=== PATIENT | male | born 1970 | race Caucasian/White ===

== ENCOUNTER 2020-09-04 20:19 | Inpatient (IN) | payer OTHER, SELFPAY ==
[2020-09-04 20:20] VITALS: BP 108/81; PULSE 121; RESP 14; TEMP 37.9; O2SAT 97; BMI 25.8
--- NOTE | 2020-09-04 20:46 | RAD_ITS ---
STUDY: X-RAY CHEST REASON FOR EXAM: Male, 50 years old. Sepsis. Shortness of breath. TECHNIQUE: Single AP portable view of the chest. COMPARISON: None. FINDINGS: The lungs are clear and expanded. There is no demonstrated pleural abnormality. Normal size heart. Normal mediastinum and gabby. Normal visualized pulmonary arteries. Normal visualized aortic arch and descending thoracic aorta. Normal visualized thoracic spine. Normal visualized ribs, clavicles, and shoulders. There is no demonstrated abnormality of the visualized soft tissue structures of the upper abdomen. RAD/Chest 1 View (Portable) IMPRESSION: No acute cardiopulmonary disease. Electronically Signed: Linwood Riddle DO at 21:07 EDT Tel [phone], Service support ,
[2020-09-04] MEDS: 0.9% Normal Saline 1,000 ML 999 ML IV ×2 (20:57→22:10)
[2020-09-04] MEDS: Acetaminophen 325 MG Tablet 650 MG PO (20:57)
--- NOTE | 2020-09-04 20:58 | EX.ED.DYSGE1 ---
HPI History of Present Illness Chief Complaint: Fever Informant: patient Narrative Narrative: Patient is a 50-year-old male who presents to the emergency department for fatigue and fever. His initial symptoms started this past Wednesday. He also developed a diffuse body rash starting on Wednesday. He has been taking some ibuprofen for his symptoms. His temperature at most has been up to 101. No known sick contacts. Patient does not believe he is received any vaccinations in childhood. Is not been vaccinated for Covid. He has had a intermittent headache and neck stiffness. He denies any chest pain but does get short of breath easily. No significant cough. No abdominal pain. No change in bowel movements. No urinary symptoms. He does work out in the [place]. He has had ticks attached to him before in the past. He does not recall any recent ones. Patient does smoke. PFSH PFSH Allergy/AdvReac Type Severity Reaction Status Date / Time No Known Allergies Allergy Verified 09/04/20 20:19 Social History Smoking Status: Current every day smoker tobacco type: cigarettes ROS ROS ED Constitutional Constitutional ED: Reports chills and fever(s) Eyes Eyes: Denies change in vision ENT ENT ED: Denies epistaxis or rhinorrhea Cardiovascular Cardiovascular: Denies chest pain or palpitations Respiratory/Chest Respiratory/Chest: Denies cough or dyspnea Gastrointestinal Gastrointestinal: Reports nausea; Denies abdominal pain, diarrhea or vomiting Genitourinary Genitourinary ED: Denies dysuria, hematuria or urinary frequency Musculoskeletal Musculoskeletal: Reports neck pain; Denies back pain Integumentary Reports rash Neurologic Neurologic: Reports headache(s); Denies dizziness or weakness EXAM Physical Exam Const Vital Signs: 09/04/20 20:20 09/04/20 20:53 09/04/20 21:23 Temperature 100.2 F H 100.2 F H Temperature Source Temporal Oral Pulse Rate 121 H 108 H Respiratory Rate 14 17 Respiratory Effort Short of Breath Respiratory Pattern Normal Blood Pressure 108/81 H 125/89 H Blood Pressure Mean 90 101 Pulse Ox 97 92 Oxygen Delivery Method Room Air Room Air Room Air 09/04/20 22:00 09/04/20 22:24 09/04/20 22:56 Temperature 98.2 F Temperature Source Oral Pulse Rate 100 87 85 Respiratory Rate 20 H 18 19 H Respiratory Effort Respiratory Pattern Blood Pressure 79/57 L 103/71 107/69 Blood Pressure Mean 64 81 81 Pulse Ox 92 92 94 Oxygen Delivery Method Room Air Room Air 09/04/20 23:29 Temperature 98.6 F Temperature Source Oral Pulse Rate 88 Respiratory Rate 18 Respiratory Effort Respiratory Pattern Blood Pressure 110/69 Blood Pressure Mean 82 Pulse Ox 91 Oxygen Delivery Method Room Air Positive well nourished and well developed General Appearance ED: well developed HEENT Reports normocephalic and head/scalp atraumatic Eyes PERRL and EOMs intact bilaterally Neck Neck Narrative: Patient does have some mild stiffness when flexing his neck and extending it. No pain with flexion of legs. His neck otherwise is supple. Chest Wall inspection of chest normal Resp normal respiratory effort and clear to auscultation bilaterally Auscultation: Negative for rales, rhonchi or wheezes Cardio regular rhythm and no murmurs Rate: tachycardic GI normal to inspection, nondistended, normoactive bowel sounds and non-tender Palpation: soft; Negative for guarding or rebound tenderness present Extremity normal to inspection General Extremety ED: Negative for edema or tenderness General Extremity: Negative for edema Neuro oriented x3, CN's II-XII intact bilaterally and no sensory deficits noted Sensorium / Orientation: alert Motor Exam: strength 5/5 throughout Psych mental status grossly normal Skin Skin Narrative: Diffuse body rash with large circles of erythema. That is blanchable. This extends over his entire body. Does look like the hands and soles of the feet are spared. No mucous membrane involvement. No petechiae present. No skin sloughing. MDM MDM MDM Narrative Medical decision making narrative: Patient presents to the emergency department for fever and fatigue. Upon arrival to the emergency department he does have a low-grade fever as well as tachycardia. He started IV fluids given a dose of Tylenol. With a history of a previous tick bite, working in the welch in a disseminated rash. I do have concern for Lyme disease. He does have some neck stiffness and intermittent headaches so I do have concern for meningitis as well. A CT scan will be obtained to evaluate for evidence of elevated intracranial pressure. Will perform lumbar puncture. Patient will be started on doxycycline and Rocephin. Blood cultures obtained as well as basic lab work. Procedure note: Written consent obtained. Risks and benefits expressed to the patient. The area was prepped and cleaned with iodine solution. The area was anesthetized with 3 cc of 1% lidocaine without epinephrine. Using spinal needle for tubes of 1 cc of clear spinal fluid was expressed. This did take 2 attempts. Patient tolerated procedure well but did have some diaphoresis and mild vagal. Patient recovered quickly from this. Patient lying flat for 1 hour post procedure. No headache post procedure. Back dressed with Band-Aid. Throughout course of ED stay patient is feeling better. Heart rate returned to normal. Temperature returning to normal. His lab did not reveal significant acute abnormality. He does not have a high white blood cell count. He has a normal lactic acid. Urine does not show any signs of infection. Chest x-ray does not reveal any acute cardiopulmonary abnormality. I did discuss the case with the on-call infectious disease doctor. He did not have any other recommendations to add at this time. Given the fact patient did come in with SIRS criteria will bring him into the hospital for observation. Lyme titer currently pending. His CSF had mild elevation of protein, normal glucose and no reportable white blood cells. This was all discussed with the patient he understands and is agreeable this plan. Lab Data Labs: Laboratory Results - last 24 hr 09/04/20 09/04/20 09/04/20 20:45 20:45 20:45 WBC 7.1 RBC 5.23 Hgb 16.1 Hct 46.9 MCV 89.7 MCH 30.8 MCHC 34.3 RDW Std Deviation 41.2 RDW Coeff of Jatin 12.4 Plt Count 104 L MPV 11.0 Immature Gran % (Auto) 0.400 Neut % (Auto) 75.5 H Lymph % (Auto) 13.6 L [place] % (Auto) 7.1 Eos % (Auto) 3.0 Baso % (Auto) 0.4 Absolute Neuts (auto) 5.3 Absolute Lymphs (auto) 0.96 Nucleated RBC % 0 Sodium 134 L Potassium 4.0 Chloride 101 Carbon Dioxide 24.0 Anion Gap 9 BUN 16 Creatinine 1.06 Estim Creat Clear Calc 80.66 Est GFR (MDRD) Af Amer 95 Est GFR (MDRD) Non-Af 79 BUN/Creatinine Ratio 15.1 Glucose 122 H Lactic Acid 1.0 Calcium 8.4 L Total Bilirubin 0.70 AST 25 ALT 44 Alkaline Phosphatase 74 Total Protein 7.4 Albumin 3.1 L Globulin 4.3 H Albumin/Globulin Ratio 0.7 L Urine Color Urine Clarity Urine pH Ur Specific [place] Urine Protein Urine Glucose (UA) Urine Ketones Urine Occult Blood Urine Nitrite Urine Bilirubin Urine Urobilinogen Ur Leukocyte Esterase Urine RBC Urine WBC Ur Squamous Epith Cells Urine Bacteria Urine Mucus Fld Polynuclear WBCs # Fld Polynuclear WBCs % Fluid Mononuclear WBCs Fld Mononuclear WBCs % CSF WBC CSF Cell Count Tube # CSF Total Cell Counted CSF Glucose CSF Total Protein 09/04/20 09/04/20 09/04/20 21:15 22:05 22:05 WBC RBC Hgb Hct MCV MCH MCHC RDW Std Deviation RDW Coeff of [place] Plt Count MPV Immature Gran % (Auto) Neut % (Auto) Lymph % (Auto) [place] % (Auto) Eos % (Auto) Baso % (Auto) Absolute Neuts (auto) Absolute Lymphs (auto) Nucleated RBC % Sodium Potassium Chloride Carbon Dioxide Anion Gap BUN Creatinine Estim Creat Clear Calc Est GFR (MDRD) Af Amer Est GFR (MDRD) Non-Af BUN/Creatinine Ratio Glucose Lactic Acid Calcium Total Bilirubin AST ALT Alkaline Phosphatase Total Protein Albumin Globulin Albumin/Globulin Ratio Urine Color Yellow Urine Clarity Clear Urine pH 6.0 Ur Specific [place] 1.010 Urine Protein 30 H Urine Glucose (UA) Normal Urine Ketones Negative Urine Occult Blood 10 H Urine Nitrite Negative Urine Bilirubin Negative Urine Urobilinogen Normal Ur Leukocyte Esterase Negative Urine RBC 0 SEEN Urine WBC 0 SEEN Ur Squamous Epith Cells 0 SEEN Urine Bacteria 1+ Urine Mucus 0 SEEN Fld Polynuclear WBCs # 0.000 Fld Polynuclear WBCs % 0.0 Fluid Mononuclear WBCs 0.001 Fld Mononuclear WBCs % 100.0 CSF WBC Not Reportable CSF Cell Count Tube # Not Reportable CSF Total Cell Counted Not Reportable CSF Glucose 66 CSF Total Protein 55.0 H Radiography Diagnostic Testing: Radiology Impression Chest X-Ray 09/04/20 20:46 IMPRESSION: No acute cardiopulmonary disease. Electronically Signed: Linwood Riddle DO at 21:07 EDT Tel [phone], Service support , Brain CT 09/04/20 21:00 IMPRESSION: Normal unenhanced CT scan of the brain. Electronically Signed: Linwood Riddle DO at 21:12 EDT Tel [phone], Service support , EKG Initial EKG: Attestation: I personally reviewed and interpreted this EKG as follows: (Rate of 109 bpm in sinus tachycardia. Normal intervals. Normal axis. No significant ST elevations or depressions. No T wave abnormalities.) Discharge Plan Dx/Rx/DC Orders Clinical Impression: SIRS (systemic inflammatory response syndrome), Disseminated Lyme disease Disposition Disposition: Acute Care Hospital [facility] Discharge Date/Time: 09/05/20 00:31
[2020-09-04] MEDS: Doxycycline 100 MG CAPSULE 200 MG PO (20:59)
[2020-09-04 21:00] LABS: Lyme Ab Screen Interpretation REF LAB; Lyme Scn Total Ab w/Rflx REF LAB
--- NOTE | 2020-09-04 21:00 | CT_ITS ---
STUDY: CT BRAIN WITHOUT CONTRAST REASON FOR EXAM: Male, 50 years old. Evaluate for elevated intracranial pressure prior to lumbar puncture. RADIATION DOSAGE (If Supplied By Facility): CTDIvol = ( 44.99 ) mGy, DLP = ( 846.73 ) mGycm TECHNIQUE: Transaxial CT imaging of the brain was performed without administration of intravenous contrast material. Individualized dose optimization techniques were used for this CT. COMPARISON: No relevant priors. FINDINGS: Normal soft tissue structures. Normal calvarium. Normal size ventricles and extra-axial spaces for the patient''s age. Normal white matter tracts of the cerebral hemispheres. Normal basal ganglia and thalami. Normal brainstem. Normal cerebellum. There is no intracranial hemorrhage. There are no findings of an acute ischemic infarction. Normal visualized paranasal sinuses. CT/Brain/Head without Contrast IMPRESSION: Normal unenhanced CT scan of the brain. Electronically Signed: Linwood Riddle DO at 21:12 EDT Tel [phone], Service support ,
[2020-09-04 21:04] LABS: Absolute Lymphocyte Count 0.96 X10^3/uL (0.83-4.51); Absolute Neutrophil Count 5.3 X10^3/uL (2.0-7.7); Basophil# 0.03 X10^3/uL; Basophil% 0.4 % (0-1); Eosinophil# 0.21 X10^3/uL; Hematocrit 46.9 % (40-54); Hemoglobin 16.1 g/dL (13.0-16.5); Lymphocyte # 0.96 X10^3/ul (0.83-4.51); Lymphocyte % 13.6 % (19-41); Mean Corp Hgb Conc 34.3 g/dL (32-36); Mean Corpuscular Hgb 30.8 pg (27.0-32.0); Mean Corpuscular Volume 89.7 fL (80-94); Monocyte% 7.1 % (0-10); NRBC Flagged by Analyzer 0 % (0-5); Neutrophil # 5.32 X10^3/uL (2.7-7.7); Neutrophil % 75.5 % (47-70); POSITIVE COUNT YES; Platelet Count 104 K/mm3 (150-450); RBC Distribution Width CV 12.4 % (11.6-14.6); RBC Distribution Width SD 41.2 fl (35.1-43.9); Red Blood Count 5.23 M/mm3 (4.6-6.2); White Blood Count 7.1 K/mm3 (4.4-11.0)
[2020-09-04 21:06] LABS: Differential Indicated SCAN CRITERIA MET
--- NOTE | 2020-09-04 21:09 | EKG12_ITS ---
Test Reason : DYSRHYTHMIA Blood Pressure : / mmHG Vent. Rate : 109 BPM Atrial Rate : 109 BPM P-R Int : 134 ms QRS Dur : 088 ms QT Int : 332 ms P-R-T Axes : 058 -26 060 degrees QTc Int : 447 ms Sinus tachycardia Low voltage QRS Borderline ECG Confirmed by WILLEM CORDOVA, RACHAEL ([id number]), society editor CAPRI MOROCHO ([id number]) on 09/06/2020 9:26:05 AM Referred By: THAO Confirmed By:JOSÉ MIGUEL BANGURA MD
[2020-09-04] MEDS: Lidocaine/Prilocaine HCl 5 GM Tube TOPICAL (21:10)
[2020-09-04 21:23] VITALS: BP 125/89; PULSE 108; RESP 17; TEMP 37.9; O2SAT 92
[2020-09-04 21:24] LABS: Mucous, Urine 0 SEEN /hpf (<or=2+); Red Blood Cells-Urine 0 SEEN /hpf (0-5); Squamous Epithelial Cells - UA 0 SEEN /hpf (0-5); White Blood Cells 0 SEEN /hpf (0-5)
[2020-09-04 21:25] LABS: Color, Urine Yellow (Yellow); Glucose, Dipstick Normal (Normal); Ketone-Dipstick Negative (Negative); Leukocyte Esterase-Dipstick Negative /ul (Negative); Nitrite-Dipstick Negative (Negative); Occult Blood-Urine 10 /ul (Negative); Protein-Dipstick 30 mg/dl (Negative); Urine Bilirubin Dipstick Negative (Negative); Urine Clarity Clear (Clear); Urine Urobilinogen Normal (Normal)
[2020-09-04 21:25] LABS: ALB/GLOB Ratio 0.7 RATIO (0.9-2.4); AST(SGOT) 25 U/L (15-37); Alanine Aminotransfer ALT/SGPT 44 U/L (16-61); Albumin, Serum 3.1 g/dL (3.2-5.0); Alkaline Phosphatase 74 U/L (45-117); Anion Gap 9 (5-15); BUN 16 mg/dL (7-18); BUN/Creat Ratio 15.1 RATIO (10-20); Calcium,Total 8.4 mg/dL (8.5-10.1); Chloride 101 mmol/L (98-107); Creatinine, Serum 1.06 mg/dL (0.70-1.30); EST Glomerular Filtration Rate 79 mL/min (>60); Est Glom Filt Rate - Afr Amer 95 mL/min (>60); Estimated Creatinine Clearance 80.66 ml/min; Globulin 4.3 g/dL (2.2-4.2); Glucose 122 mg/dL (74-106); Protein, Total 7.4 g/dL (6.4-8.2); Sodium Level 134 mmol/L (136-145)
[2020-09-04 21:31] LABS: Bacteria 1+ /hpf (None Seen)
[2020-09-04 22:00] VITALS: BP 79/57; PULSE 100; RESP 20; O2SAT 92
[2020-09-04 22:24] VITALS: BP 103/71; PULSE 87; RESP 18; TEMP 36.8; O2SAT 92
[2020-09-04 22:24] LABS: Glucose Spinal Fluid 66 mg/dL (40-75)
--- NOTE | 2020-09-04 22:28 | ED.RN ---
pt become diaphoretic while doing LP. 2200- BP 79/57 P-100 spO2- 92 R-22. [address] Dr. Garza, give 1000ml bolus IV. After laying patient down when procedure was finished, pt started feeling better. no sweating noted. VSS. lying flat at this time. no complaints.
[2020-09-04 22:55] LABS: Body Fluid Mononuclear WBC # 0.001 10^3/uL
[2020-09-04 22:56] VITALS: BP 107/69; PULSE 85; RESP 19; O2SAT 94
[2020-09-04 23:29] VITALS: BP 110/69; PULSE 88; RESP 18; TEMP 37; O2SAT 91
[2020-09-05] VITALS (12 sets, daily range): BP systolic 101–126; BP diastolic 66–85; PULSE 77–107; RESP 14–19; TEMP 36.4–38.8; O2SAT 91–96; BMI 24.9
[2020-09-05 00:05] LABS: Auto B Fluid Analyzer BKGD Ct COUNTS W/IN LIMITS (W/IN LIMITS)
--- NOTE | 2020-09-05 00:07 | PCM.HP.STD ---
HPI - General General Date of Admission: 09/05/20 HPI Narrative TAI ZAMUDIO, is a 50 M with no significant PMH who was admitted via the ED on 09/05/2020 with a complaint of fever, chills and a rash which had been going on for a few days. He denied any cough, urinary symptoms also respiratory symptoms, any abdominal pain or any diarrhea vomiting. Patient did admit to a rash. He states he goes out into the [place] often, and has been bitten by ticks before but cannot say if it has happened recently. Review of systems otherwise negative. Initially on admission, he was febrile with temperature 100.2 and was also tachycardic with heart rate of 108 but the symptoms subsequently resolved after he was hydrated with IV fluids and at time of review, vitals were temperature of 98.6, pulse rate of 88 and blood pressure of 110/69 with respiratory rate of 18 and he was saturating at 91% on room air. CBC showed WBC of 7.1 and hemoglobin of 16.1 as well as platelets of 104. Chemistry showed sodium of 134 but was otherwise unremarkable. Patient was complaining of neck stiffness at time of admission as well so lumbar puncture was done and CSF analysis showed elevated protein of 55 but was otherwise pending. Chest x-ray showed no acute cardiopulmonary process and CT of the brain was also negative for any acute intracranial pathology. Patient was noted to have an extensive rash which is similar to disseminated Lyme so he was started on IV ceftriaxone and doxycycline in the ED. He has been admitted to be managed for SIRS criteria which is thought to be possibly due to disseminated Lyme disease. PFSH Allergy/AdvReac Type Severity Reaction Status Date / Time No Known Allergies Allergy Verified 09/04/20 20:19 Social History Smoking Status: Current every day smoker tobacco type: cigarettes ROS Constitutional Constitutional: Reports chills, fatigue, fever(s) and malaise; Denies anorexia, night sweats or weakness ENT HEENT: Denies dysphagia, headache(s), nasal congestion or sore throat Cardiovascular Cardiovascular: Denies chest pain, dyspnea on exertion, edema, lightheadedness, orthopnea, palpitations, paroxysmal nocturnal dyspnea or rapid heart rate Respiratory/Chest Respiratory/Chest: Denies cough, dyspnea, productive cough, shortness of breath at rest or shortness of breath with exertion Gastrointestinal Gastrointestinal: Denies abdominal pain, constipation or diarrhea Genitourinary Genitourinary: Denies burning urination, dysuria or urinary frequency Musculoskeletal Musculoskeletal: Denies arthralgias, joint pain or joint swelling Neurologic Neurologic: Denies confusion, dizziness or focal weakness Psychiatric Psychiatric: Denies anxiety Endocrine Endocrinology: Denies change in body appearance Hematologic/Lymphatic Hematologic/Lymphatic: Denies anemia Allergic/Immunologic Allergic/Immunologic: Denies asthma Vital Signs Vital Signs Vital Signs: 09/04/20 20:20 09/04/20 20:53 09/04/20 21:23 Temperature 100.2 F H 100.2 F H Temperature Source Temporal Oral Pulse Rate 121 H 108 H Respiratory Rate 14 17 Respiratory Effort Short of Breath Respiratory Pattern Normal Blood Pressure 108/81 H 125/89 H Blood Pressure Mean 90 101 Pulse Ox 97 92 Oxygen Delivery Method Room Air Room Air Room Air 09/04/20 22:00 09/04/20 22:24 09/04/20 22:56 Temperature 98.2 F Temperature Source Oral Pulse Rate 100 87 85 Respiratory Rate 20 H 18 19 H Respiratory Effort Respiratory Pattern Blood Pressure 79/57 L 103/71 107/69 Blood Pressure Mean 64 81 81 Pulse Ox 92 92 94 Oxygen Delivery Method Room Air Room Air 09/04/20 23:29 Temperature 98.6 F Temperature Source Oral Pulse Rate 88 Respiratory Rate 18 Respiratory Effort Respiratory Pattern Blood Pressure 110/69 Blood Pressure Mean 82 Pulse Ox 91 Oxygen Delivery Method Room Air Weight Weight: 170 lb Body Mass Index (BMI) 25.8 Physical Exam Const alert, oriented x3 and no apparent distress General Appearance: cooperative HEENT normocephalic, head/scalp atraumatic, hearing grossly normal bilaterally and moist oral mucous membranes Eyes PERRL, EOMs intact bilaterally and conjunctivae normal Neck no lymphadenopathy, supple, no JVD and no carotid bruits Resp normal respiratory effort, no retractions, no use of accessory muscles and clear to auscultation bilaterally Cardio regular rate, regular rhythm, S1 normal heart sound, S2 normal heart sound and no murmurs GI normal to inspection, nondistended, normoactive bowel sounds, soft to palpation, non-tender and non-distended Extremity normal to inspection, full ROM and no clubbing, cyanosis or edema Peripheral Pulses: Yes pulses 2+ throughout Skin Skin Narrative: has erythematous, circular shaped blanchable, papular rash over abdomen, torso, back and upper extremities. No clear central clearing. Neuro oriented x3 and moves all extremities Sensorium / Orientation: awake and alert Psych affect normal Results Lab / Micro Data Result Diagrams: 09/04/20 20:45 09/04/20 20:45 Labs: Laboratory Results - last 24 hr 09/04/20 20:45: WBC 7.1, RBC 5.23, Hgb 16.1, Hct 46.9, MCV 89.7, MCH 30.8, MCHC 34.3, RDW Std Deviation 41.2, RDW Coeff of Jatin 12.4, Plt Count 104 L, MPV 11.0, Immature Gran % (Auto) 0.400, Neut % (Auto) 75.5 H, Lymph % (Auto) 13.6 L, [place] % (Auto) 7.1, Eos % (Auto) 3.0, Baso % (Auto) 0.4, Absolute Neuts (auto) 5.3, Absolute Lymphs (auto) 0.96, Nucleated RBC % 0 09/04/20 20:45: Sodium 134 L, Potassium 4.0, Chloride 101, Carbon Dioxide 24.0, Anion Gap 9, BUN 16, Creatinine 1.06, Estim Creat Clear Calc 80.66, Est GFR (MDRD) Af Amer 95, Est GFR (MDRD) Non-Af 79, BUN/Creatinine Ratio 15.1, Glucose 122 H, Calcium 8.4 L, Total Bilirubin 0.70, AST 25, ALT 44, Alkaline Phosphatase 74, Total Protein 7.4, Albumin 3.1 L, Globulin 4.3 H, Albumin/Globulin Ratio 0.7 L 09/04/20 20:45: Lactic Acid 1.0 09/04/20 21:15: Urine Color Yellow, Urine Clarity Clear, Urine pH 6.0, Ur Specific [place] 1.010, Urine Protein 30 H, Urine Glucose (UA) Normal, Urine Ketones Negative, Urine Occult Blood 10 H, Urine Nitrite Negative, Urine Bilirubin Negative, Urine Urobilinogen Normal, Ur Leukocyte Esterase Negative, Urine RBC 0 SEEN, Urine WBC 0 SEEN, Ur Squamous Epith Cells 0 SEEN, Urine Bacteria 1+, Urine Mucus 0 SEEN 09/04/20 22:05: CSF Glucose 66, CSF Total Protein 55.0 H 09/04/20 22:05: Fld Polynuclear WBCs # 0.000, Fld Polynuclear WBCs % 0.0, Fluid Mononuclear WBCs 0.001, Fld Mononuclear WBCs % 100.0 Micro: Microbiology 09/04/20 22:05 Csf, Spinal Fluid Gram Stain - Preliminary 09/04/20 20:50 Mucosa - Nose SARS-CoV-2 Antigen (Rapid) - Final Radiology Impression Chest X-Ray 09/04/20 20:46 IMPRESSION: No acute cardiopulmonary disease. Electronically Signed: Linwood Riddle DO at 21:07 EDT Tel [phone], Service support , Brain CT 09/04/20 21:00 IMPRESSION: Normal unenhanced CT scan of the brain. Electronically Signed: Linwood Riddle DO at 21:12 EDT Tel [phone], Service support , Assessment & Plan Assessment/Plan (1) SIRS (systemic inflammatory response syndrome): (2) Disseminated Lyme disease: PLAN: #Probable disseminated Lyme disease based on patient's history of generalised weakness, fever, chills and onset of erythematous rash, as well as his history of working in the [employer] for long periods and suspected tick bites, i do think it is reasonable to treat for Lyme;s disease pending serology started on IV ceftriaxone in the ED; will continue consult ID CSF analysis showed mildly elevated protein, but 0 polynuclear wbcs. glucose was 66 #SIRS criteria patient was febrile and tachycardic on admission; these resolved wtih IVF administration continue to monitor. PO tylenol prn. hydrate gently with iVF #Nicotine dependence: counseled to quit. Nicotine patch 21mg daily DVT prophylaxis: lovenox Charges/Coding Visit Charges OBSV E&M: 90067 Initial observation care L2
[2020-09-05 00:16] LABS: Eosinophils,CSF 0 % (None seen); Lymphocytes,CSF 2 % (40 - 80); Monocytes,CSF 0 % (15 - 45); Neutrophils,CSF 0 % (0 - 6); Other Cells,CSF 0 %
[2020-09-05 00:17] LABS: RBC Count, Spinal Fluid 12 /mm-3 (None seen)
[2020-09-05 00:28] LABS: Appearance CSF (character) CLEAR (Clear); CSF Color COLORLESS (Colorless)
[2020-09-05] MEDS: 0.9% Saline Lock 10 ML Syringe IV ×2 (01:02→21:03)
[2020-09-05] MEDS: 0.9% Normal Saline 1,000 ML 150 ML IV ×2 (01:02→07:50)
[2020-09-05] MEDS: Acetaminophen 325 MG Tablet 650 MG PO (05:35)
[2020-09-05 06:59] LABS: Absolute Lymphocyte Count 0.56 X10^3/uL (0.83-4.51); Absolute Neutrophil Count 6.3 X10^3/uL (2.0-7.7); Basophil# 0.02 X10^3/uL; Basophil% 0.3 % (0-1); Differential Indicated SCAN CRITERIA MET; Eosinophil# 0.08 X10^3/uL; Eosinophils% 1.1 % (0-5); Hematocrit 43.9 % (40-54); Hemoglobin 14.6 g/dL (13.0-16.5); Lymphocyte # 0.56 X10^3/ul (0.83-4.51); Lymphocyte % 7.9 % (19-41); Mean Corp Hgb Conc 33.3 g/dL (32-36); Mean Corpuscular Hgb 30.5 pg (27.0-32.0); Mean Corpuscular Volume 91.6 fL (80-94); Mean Platelet Vol. 11.2 fl (6.2-12.0); Monocyte# 0.16 X10^3/uL; Monocyte% 2.2 % (0-10); NRBC Flagged by Analyzer 0 % (0-5); Neutrophil # 6.27 X10^3/uL (2.7-7.7); Neutrophil % 88.1 % (47-70); POSITIVE COUNT YES; POSITIVE DIFFERENTIAL YES; POSITIVE MORPHOLOGY YES; Platelet Count 69 K/mm3 (150-450); RBC Distribution Width CV 12.7 % (11.6-14.6); Red Blood Count 4.79 M/mm3 (4.6-6.2); White Blood Count 7.1 K/mm3 (4.4-11.0)
[2020-09-05 07:08] LABS: Body Fluid QC Type(s) BF1Q,BF2Q,BF3Q
[2020-09-05 07:18] LABS: Anion Gap 8 (5-15); BUN 13 mg/dL (7-18); BUN/Creat Ratio 14.1 RATIO (10-20); Calcium,Total 7.8 mg/dL (8.5-10.1); Chloride 105 mmol/L (98-107); Creatinine, Serum 0.92 mg/dL (0.70-1.30); EST Glomerular Filtration Rate 92 mL/min (>60); Est Glom Filt Rate - Afr Amer 111 mL/min (>60); Estimated Creatinine Clearance 92.93 ml/min; Glucose 98 mg/dL (74-106); Sodium Level 136 mmol/L (136-145)
[2020-09-05 07:34] LABS: Tested Tube # 3; White Count, CSF 5 /mm-3 (0 - 5)
--- NOTE | 2020-09-05 10:32 | PCM.CONS.GEN ---
Assessment & Plan Assessment/Plan (1) Rash: (2) Fever: PLAN: With fatigue, tick exposure, fever, headache, centripetal rash, highest concern is for john mountain spotted fever. CSF normal with only 5 wbc. Cont ceftriaxone for now, will add doxy. Will follow, thank you (3) Fatigue: HPI Consult Data Date of Consult: 09/05/20 HPI Narrative HPI Narrative: TAI ZAMUDIO, is a 50 M who presented with fatigue starting 08/30, then 3 days of rash starting on hands, spreading to trunk. Nonpainful, no itching, no lesions. No palm or sole involvement. Works in [employer], has not found any ticks recently. Some mild headache, some back ache radiating down legs. No joint swelling. No change in taste or smell. No congestion or cough. New dyspnea with exertion. No n/v/d. No sick contacts. Has not gotten covid vaccine. Came to ED, LP done, started on doxy and ceftriaxone. Feeling a little better this AM. Full ROS performed and neg except as noted above. PFSH Allergy/AdvReac Type Severity Reaction Status Date / Time No Known Allergies Allergy Verified 09/05/20 00:44 Social History Smoking Status: Current every day smoker tobacco type: cigarettes Physical Exam Const alert, oriented x3 and no apparent distress General Appearance: cooperative Exam Limitations: no limitations HEENT normocephalic and head/scalp atraumatic Eyes PERRL and EOMs intact bilaterally Neck supple and No nodes Resp normal air movement and clear to auscultation bilaterally Cardio regular rate and regular rhythm GI normal to inspection, nondistended, normoactive bowel sounds Extremity no clubbing, cyanosis or edema Skin Skin Narrative: rash on arms, mildly on legs, also on trunk. Not on palms and soles. Neuro CN's II-XII intact bilaterally Lab / Micro Data Result Diagrams: 09/05/20 06:18 09/05/20 06:18 Labs: Laboratory Results - last 24 hr 09/04/20 20:45: WBC 7.1, RBC 5.23, Hgb 16.1, Hct 46.9, MCV 89.7, MCH 30.8, MCHC 34.3, RDW Std Deviation 41.2, RDW Coeff of J[place] 12.4, Plt Count 104 L, MPV 11.0, Immature Gran % (Auto) 0.400, Neut % (Auto) 75.5 H, Lymph % (Auto) 13.6 L, [place] % (Auto) 7.1, Eos % (Auto) 3.0, Baso % (Auto) 0.4, Absolute Neuts (auto) 5.3, Absolute Lymphs (auto) 0.96, Nucleated RBC % 0 09/04/20 20:45: Sodium 134 L, Potassium 4.0, Chloride 101, Carbon Dioxide 24.0, Anion Gap 9, BUN 16, Creatinine 1.06, Estim Creat Clear Calc 80.66, Est GFR (MDRD) Af Amer 95, Est GFR (MDRD) Non-Af 79, BUN/Creatinine Ratio 15.1, Glucose 122 H, Calcium 8.4 L, Total Bilirubin 0.70, AST 25, ALT 44, Alkaline Phosphatase 74, Total Protein 7.4, Albumin 3.1 L, Globulin 4.3 H, Albumin/Globulin Ratio 0.7 L 09/04/20 20:45: Lactic Acid 1.0 09/04/20 21:15: Urine Color Yellow, Urine Clarity Clear, Urine pH 6.0, Ur Specific [place] 1.010, Urine Protein 30 H, Urine Glucose (UA) Normal, Urine Ketones Negative, Urine Occult Blood 10 H, Urine Nitrite Negative, Urine Bilirubin Negative, Urine Urobilinogen Normal, Ur Leukocyte Esterase Negative, Urine RBC 0 SEEN, Urine WBC 0 SEEN, Ur Squamous Epith Cells 0 SEEN, Urine Bacteria 1+, Urine Mucus 0 SEEN 09/04/20 22:05: CSF Glucose 66, CSF Total Protein 55.0 H 09/04/20 22:05: Fld Polynuclear WBCs # 0.000, Fld Polynuclear WBCs % 0.0, Fluid Mononuclear WBCs 0.001, Fld Mononuclear WBCs % 100.0, CSF Appearance CLEAR, CSF Color COLORLESS, CSF WBC 5, CSF RBC 12 H, CSF Cell Count Tube # 3, CSF Total Cell Counted Not Reportable, CSF Neutrophils 0, CSF Lymphocytes 2 L, CSF Monocytes 0 L, CSF Eosinophils 0, CSF Other Cells 0, CSF Comment May follow 09/05/20 06:18: WBC 7.1, RBC 4.79, Hgb 14.6, Hct 43.9, MCV 91.6, MCH 30.5, MCHC 33.3, RDW Std Deviation 43.0, RDW Coeff of [place] 12.7, Plt Count 69 L, MPV 11.2, Immature Gran % (Auto) 0.400, Neut % (Auto) 88.1 H, Lymph % (Auto) 7.9 L, [place] % (Auto) 2.2, Eos % (Auto) 1.1, Baso % (Auto) 0.3, Absolute Neuts (auto) 6.3, Absolute Lymphs (auto) 0.56 L, Nucleated RBC % 0 09/05/20 06:18: Sodium 136, Potassium 4.0, Chloride 105, Carbon Dioxide 23.0, Anion Gap 8, BUN 13, Creatinine 0.92, Estim Creat Clear Calc 92.93, Est GFR (MDRD) Af Amer 111, Est GFR (MDRD) Non-Af 92, BUN/Creatinine Ratio 14.1, Glucose 98, Calcium 7.8 L Micro: Microbiology 09/04/20 22:05 Csf, Spinal Fluid Gram Stain - Preliminary 09/04/20 20:50 Mucosa - Nose SARS-CoV-2 Antigen (Rapid) - Final Radiology Impression Chest X-Ray 09/04/20 20:46 IMPRESSION: No acute cardiopulmonary disease. Electronically Signed: Linwood Riddle DO at 21:07 EDT Tel [phone], Service support , Brain CT 09/04/20 21:00 IMPRESSION: Normal unenhanced CT scan of the brain. Electronically Signed: Linwood Riddle DO at 21:12 EDT Tel [phone], Service support ,
[2020-09-05] MEDS: Enoxaparin 40 MG/0.4 ML Syringe SC (10:46)
--- NOTE | 2020-09-05 10:53 | PN.HOSP_ITS ---
Documented by User: Zoe Jackson NP, STRATEGIC DEBRIEFING OFFICER-C 09/05/20 11:04 Subjective Subjective Patient seen and examined. Reports intermittent fever. Describes generalized rash, denies symptoms related to rash. Reports generally feeling lazy which she further describes as feeling tired and weak. Denies cough or upper respiratory symptoms. Denies recent new medication or antibiotic use. Denies nausea, vomiting, diarrhea. Objective Data Objective Data Vital Signs: Vital Signs Temp Pulse Resp BP Pulse Ox 97.5 F L 83 14 101/66 96 09/05/20 10:38 09/05/20 10:38 09/05/20 10:38 09/05/20 10:38 09/05/20 10:38 Oxygen Delivery Method Room Air Weight: 164 lb 0.383 oz Body Mass Index (BMI) 24.9 Intake & Output: Intake and Output for Last 24 Hours 09/03/20 09/04/20 09/05/20 23:59 23:59 23:59 Intake Total 2049 165 / 1650 Balance 2049 165 / 165 Lab / Micro Data Result Diagrams: 09/05/20 06:18 09/05/20 06:18 Labs: Laboratory Results - last 24 hr 09/04/20 20:45: WBC 7.1, RBC 5.23, Hgb 16.1, Hct 46.9, MCV 89.7, MCH 30.8, MCHC 34.3, RDW Std Deviation 41.2, RDW Coeff of Jatin 12.4, Plt Count 104 L, MPV 11.0, Immature Gran % (Auto) 0.400, Neut % (Auto) 75.5 H, Lymph % (Auto) 13.6 L, [place] % (Auto) 7.1, Eos % (Auto) 3.0, Baso % (Auto) 0.4, Absolute Neuts (auto) 5.3, Absolute Lymphs (auto) 0.96, Nucleated RBC % 0 09/04/20 20:45: Sodium 134 L, Potassium 4.0, Chloride 101, Carbon Dioxide 24.0, Anion Gap 9, BUN 16, Creatinine 1.06, Estim Creat Clear Calc 80.66, Est GFR (MDRD) Af Amer 95, Est GFR (MDRD) Non-Af 79, BUN/Creatinine Ratio 15.1, Glucose 122 H, Calcium 8.4 L, Total Bilirubin 0.70, AST 25, ALT 44, Alkaline Phosphatase 74, Total Protein 7.4, Albumin 3.1 L, Globulin 4.3 H, Albumin/Globulin Ratio 0.7 L 09/04/20 20:45: Lactic Acid 1.0 09/04/20 21:15: Urine Color Yellow, Urine Clarity Clear, Urine pH 6.0, Ur Specific [place] 1.010, Urine Protein 30 H, Urine Glucose (UA) Normal, Urine Ketones Negative, Urine Occult Blood 10 H, Urine Nitrite Negative, Urine Bilirubin Negative, Urine Urobilinogen Normal, Ur Leukocyte Esterase Negative, Urine RBC 0 SEEN, Urine WBC 0 SEEN, Ur Squamous Epith Cells 0 SEEN, Urine Bacteria 1+, Urine Mucus 0 SEEN 09/04/20 22:05: CSF Glucose 66, CSF Total Protein 55.0 H 09/04/20 22:05: Fld Polynuclear WBCs # 0.000, Fld Polynuclear WBCs % 0.0, Fluid Mononuclear WBCs 0.001, Fld Mononuclear WBCs % 100.0, CSF Appearance CLEAR, CSF Color COLORLESS, CSF WBC 5, CSF RBC 12 H, CSF Cell Count Tube # 3, CSF Total Cell Counted Not Reportable, CSF Neutrophils 0, CSF Lymphocytes 2 L, CSF Monocytes 0 L, CSF Eosinophils 0, CSF Other Cells 0, CSF Comment May follow 09/05/20 06:18: WBC 7.1, RBC 4.79, Hgb 14.6, Hct 43.9, MCV 91.6, MCH 30.5, MCHC 33.3, RDW Std Deviation 43.0, RDW Coeff of [place] 12.7, Plt Count 69 L, MPV 11.2, Immature Gran % (Auto) 0.400, Neut % (Auto) 88.1 H, Lymph % (Auto) 7.9 L, [place] % (Auto) 2.2, Eos % (Auto) 1.1, Baso % (Auto) 0.3, Absolute Neuts (auto) 6.3, Absolute Lymphs (auto) 0.56 L, Nucleated RBC % 0 09/05/20 06:18: Sodium 136, Potassium 4.0, Chloride 105, Carbon Dioxide 23.0, Anion Gap 8, BUN 13, Creatinine 0.92, Estim Creat Clear Calc 92.93, Est GFR (MDRD) Af Amer 111, Est GFR (MDRD) Non-Af 92, BUN/Creatinine Ratio 14.1, Glucose 98, Calcium 7.8 L Micro: Microbiology 09/04/20 22:05 Csf, Spinal Fluid Gram Stain - Preliminary 09/04/20 20:50 Mucosa - Nose SARS-CoV-2 Antigen (Rapid) - Final Radiography Diagnostic Testing: Radiology Impression Chest X-Ray 09/04/20 20:46 IMPRESSION: No acute cardiopulmonary disease. Electronically Signed: Linwood Riddle DO at 21:07 EDT Tel [phone], Service support , Brain CT 09/04/20 21:00 IMPRESSION: Normal unenhanced CT scan of the brain. Electronically Signed: Linwood Riddle DO at 21:12 EDT Tel [phone], Service support , Physical Exam Const alert, oriented x3 and no apparent distress Orientation / Consciousness: awake, oriented to person, oriented to place and oriented to time HEENT normocephalic and moist oral mucous membranes Eyes PERRL, EOMs intact bilaterally and conjunctivae normal Neck no lymphadenopathy Resp normal respiratory effort and clear to auscultation bilaterally Cardio regular rate, regular rhythm and no murmurs Peripheral Pulses: pulses 2+ throughout GI normal to inspection, nondistended, normoactive bowel sounds, non-tender and non-distended Extremity normal to inspection Skin no rashes or lesions noted Skin Narrative: Generalized erythematous patches throughout body. Lesions: no lesions Rashes: no rashes Trauma: no lacerations or abrasions Neuro CN's II-XII intact bilaterally, no focal motor deficits, no sensory deficits noted and deep tendon reflexes 2+ bilaterally Psych mental status grossly normal and affect normal Assessment & Plan Assessment/Plan (1) SIRS (systemic inflammatory response syndrome): (2) Disseminated Lyme disease: PLAN: 1. Suspected disseminated Lyme disease, rash/fever-on IV Rocephin. ID consulted. PT/OT. CSF fluid culture showing no growth. Lyme serologies p ending. 2. SIRS- febrile, tachycardic on admission. Resolved. 3. Tobacco dependence-encourage cessation. Nicotine replacement patch. DVT prophylaxis-Lovenox subcu This patient was seen by JUDIT Presley under the supervision of Dr. Bowling. Documented by User: Dr. Cary Bowling MD 09/05/20 19:10 Objective Data Lab / Micro Data Result Diagrams: 09/05/20 06:18 09/05/20 06:18
[2020-09-05] MEDS: Doxycycline 100 MG CAPSULE PO ×2 (12:05→21:03)
[2020-09-05 13:49] LABS: Pathologist Review Reviewed
--- NOTE | 2020-09-05 15:14 | CASEMGMT ---
ISIDRO STARKS assessment: Face to Face with patient for initial transition planning/care coordination assessment. ISIDRO STARKS introduced self and role at [facility], pt voices understanding and consents to assessment. Pt is lying in bed in no distress. Pt is A/Ox4 and answers all questions appropriately. Care providers, pharmacy, and demographics verified. Presentation: Pt c/o fatigue/fever Admitting dx: SIRS criteria/probable disseminated lymes disease PCP: Pt states does not have PCP but is willing to take a list. Specialists: Pt states no current specialists. Preferred Pharmacy: [facility] Insurance: [facility] Prescription Benefit: Self pay Living Will/HPOA: Pt states has LW/HPOA and is aware that they are not on file at [facility]. LNOK: Joe Duarte, son Living Arrangements: Pt states lives with family in 2 story home and states no concerns at home. Pt is independent w/ ADL's. Transportation: Pt states no concerns arranging transportation. DME/HHC: Pt states no current DME or need for any. Pt states no hx of HHC or SNF. Pt states no concerns with going home at time of discharge. 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 Pt states smokes a pack of cigarettes daily and does not drink ETOH. Pt states no further concerns/needs. CM to follow for any further discharge planning/needs. Advised pt to ask for CM if any further questions/concerns/needs arise, voices understanding. Pt Goal: Home Plan[place] ISIDRO STARKS
--- NOTE | 2020-09-05 15:58 | CHAPLAIN ---
Type of Pastoral Visit _x__ Initial Visit ___ Follow-up Visit ___ On-call Visit ___ General Patient Visit ___ Spiritual Assessment ___ Family Conference ___ Bereavement ___ Rapid Response ___ Code Blue ___ Other (describe below) Pastoral Care Referral From _x__ Patient ___ Family ___ Nurse ___ Physician ___ Women Specialist ___ Wiping Rag Washer ___ Other (describe below) Sacrament/Intervention _x__ Active listening ___ Anointing ___ Yarsani ___ Bereavement ___ Communion ___ Vanita exploration ___ _x__ Life review _x__ Prayer ___ Reconciliation ___ Sacrament of Sick _x__ Supportive presence ___ Wedding ___ Other (describe below) Pastoral Comments
[2020-09-06 03:00] VITALS: PULSE 68
[2020-09-06 03:40] VITALS: BP 116/70; PULSE 71; RESP 16; TEMP 36.5; O2SAT 96
[2020-09-06 09:40] VITALS: BP 120/73; PULSE 78; RESP 16; TEMP 36.6; O2SAT 94
[2020-09-06] MEDS: Enoxaparin 40 MG/0.4 ML Syringe SC (09:52)
[2020-09-06] MEDS: Doxycycline 100 MG CAPSULE PO (09:52)
--- NOTE | 2020-09-06 11:58 | PCM.DC ---
Discharge Instructions Follow Up Care Test Results: Test results from this visit will be discussed in further detail at your follow-up appointment, if applicable. Discharge Plan Admission Admit Date/Time: 09/05/20 00:48 Attending Provider: Cary Bowling Primary Care Provider: Care Physician,Sharita Primary Consulting Providers: Asaf Hannah Discharge Orders/Prescriptions Referrals / Follow Up: Care Physician,No Primary [Primary Care Provider] - Disposition Disposition (needs filled in before D/C Order can be placed): Home, Self Care
--- NOTE | 2020-09-06 12:26 | PCM.DC ---
Discharge Instructions Diet Discharge Diet: No restrictions Activity Discharge Activity: Return to Normal Activity Dressing / Incision Call your doctor if you observe: Fever of 101 or Higher, Shortness of breath, Dizziness and Chest pain Follow Up Care Test Results: Test results from this visit will be discussed in further detail at your follow-up appointment, if applicable. Discharge Plan Admission Admit Date/Time: 09/05/20 00:48 Primary Reason for Your Visit: Suspected john mountain spotted fever Attending Provider: Cary Bowling Primary Care Provider: Care Physician,No Primary Consulting Providers: Asaf Hannah Discharge Orders/Prescriptions Prescriptions: New doxycycline monohydrate 100 mg Capsule 100 mg PO BID 7 Days Qty: 14 RF: 0 Referrals / Follow Up: Care Physician,No Primary [Primary Care Provider] - In 1 Week Disposition Disposition (needs filled in before D/C Order can be placed): Home, Self Care
--- NOTE | 2020-09-06 12:32 | PCM.DC.SUM ---
Documented by User: Zoe Jackson NP, ROOFING SUPERVISOR-C 09/06/20 12:35 Providers Date of Admission: 09/05/20 Date of Discharge: 09/06/20 Primary Care Physician: Sharita Primary Care Phys Consultations 09/05/20 01:01 Consult: Infectious Disease Routine Consulting Provider: Asaf Hannah Reason for Consult: probable disseminated lyme disease EMERGENT Consult: No MD Notified: Yes Date Notified: 09/05/20 Time Notified: 08:09 Method of Notification: Answering Service Reason For Visit: SIRS CRITERIA, PROBABLE DISSEMINATED LYMES DISEASE Diagnosis Discharge Diagnosis (1) SIRS (systemic inflammatory response syndrome): Status: Acute Code(s): R65.10 - Systemic inflammatory response syndrome (SIRS) of non-infectious origin without acute organ dysfunction (2) Disseminated Lyme disease: Status: Acute Code(s): A69.20 - Lyme disease, unspecified Medications at Discharge Home Medications doxycycline monohydrate 100 mg PO BID 7 Days #14 cap 09/06/20 Hospital Course Operations None Procedures None Summary of Care Provided Minutes Spent on Discharge: 35 Hospital Course: Patient is a 50-year-old male admitted 09/05/2020 due to fever, chills and rash. 1. Rash/fever, tick exposure-concern for [place] spotted fever-IV Rocephin and doxycycline during mission. ID consulted. Recommends oral doxycycline 100 mg twice daily for 7 weeks at discharge. Lyme serologies pending. Fever resolved. Follow-up with PCP in 1 week. 2. SIRS- febrile, tachycardic on admission. Resolved. 3. Tobacco dependence-encourage cessation. Physical Exam Const alert, oriented x3 and no apparent distress Orientation / Consciousness: awake, oriented to person, oriented to place and oriented to time HEENT normocephalic and moist oral mucous membranes Eyes PERRL, EOMs intact bilaterally and conjunctivae normal Neck no lymphadenopathy Resp normal respiratory effort and clear to auscultation bilaterally Cardio regular rate, regular rhythm and no murmurs Peripheral Pulses: pulses 2+ throughout GI normal to inspection, nondistended, normoactive bowel sounds, non-tender and non-distended Extremity normal to inspection Skin no rashes or lesions noted Skin Narrative: Generalized erythematous patches throughout body. Lesions: no lesions Rashes: no rashes Trauma: no lacerations or abrasions Neuro CN's II-XII intact bilaterally, no focal motor deficits, no sensory deficits noted and deep tendon reflexes 2+ bilaterally Psych mental status grossly normal and affect normal Patient seen and examined prior to discharge. Physical assessment as noted above. Patient is stable for discharge with follow up recommendations as noted above. This patient was seen by JUDIT Presley under the supervision of Dr. Bowling. Weight / BMI Weight Weight: 164 lb 0.383 oz Body Mass Index (BMI) 24.9 ABG / Lab / Microbiology Data Result Diagrams: 09/05/20 06:18 09/05/20 06:18 Laboratory: Laboratory Results - last 24 hr 09/04/20 22:05: CSF Comment Reviewed Microbiology: Microbiology 09/04/20 21:15 Urine, Clean Catch Urine Culture - Preliminary Culture exhibits no growth. 09/04/20 22:05 Csf, Spinal Fluid Gram Stain - Preliminary 09/04/20 22:05 Csf, Spinal Fluid CSF Culture - Preliminary Culture exhibits no growth. 09/04/20 20:50 Mucosa - Nose SARS-CoV-2 Antigen (Rapid) - Final D/C Instructions Discharge Diet: No restrictions Call your doctor if you observe: Fever of 101 or Higher, Shortness of breath, Dizziness and Chest pain Meaningful Use Info Meaningful Use Diagnoses (Choose all that apply): None applicable Discharge Plan Admission Admit Date/Time: 09/05/20 00:48 Primary Reason for Your Visit: Suspected john mountain spotted fever Attending Provider: Cary Bowling Primary Care Provider: Care Physician,No Primary Consulting Providers: Asaf Hannah Instructions Additional Instructions / Restrictions: Patient Problems: Altered Health Status related to Hospitalization Patient Goals: *Optimal Level of Health *Keep Appointments *Medication Compliance *Remain Safe Discharge Orders/Prescriptions Prescriptions: New doxycycline monohydrate 100 mg Capsule 100 mg PO BID 7 Days Qty: 14 RF: 0 Referrals / Follow Up: Care Physician,No Primary [Primary Care Provider] - In 1 Week Disposition Disposition (needs filled in before D/C Order can be placed): Home, Self Care Documented by User: Dr. Cary Bowling MD 09/06/20 13:28 Providers Date of Admission: 09/05/20 Reason For Visit: SIRS CRITERIA, PROBABLE DISSEMINATED LYMES DISEASE Medications at Discharge Home Medications doxycycline monohydrate 100 mg PO BID 7 Days #14 cap 09/06/20 ABG / Lab / Microbiology Data Result Diagrams: 09/05/20 06:18 09/05/20 06:18 Discharge Plan Admission Admit Date/Time: 09/05/20 00:48 Primary Reason for Your Visit: Suspected john mountain spotted fever Attending Provider: Cary Bowling Primary Care Provider: Care Physician,No Primary Consulting Providers: Asaf Hannah Instructions Additional Instructions / Restrictions: Patient Problems: Altered Health Status related to Hospitalization Patient Goals: *Optimal Level of Health *Keep Appointments *Medication Compliance *Remain Safe Discharge Orders/Prescriptions Prescriptions: New doxycycline monohydrate 100 mg Capsule 100 mg PO BID 7 Days Qty: 14 RF: 0 Referrals / Follow Up: Care Physician,No Primary [Primary Care Provider] - In 1 Week Disposition Disposition (needs filled in before D/C Order can be placed): Home, Self Care
--- NOTE | 2020-09-06 12:55 | PCM.PN.ID ---
Physical Exam Narrative Feeling better, no fever, fatigue improved, home planned for today Const alert and no apparent distress General Appearance: cooperative Resp normal air movement and clear to auscultation bilaterally Cardio regular rate and regular rhythm GI normal to inspection, nondistended, normoactive bowel sounds Skin Skin Narrative: rash improving ID ID: Route of nutrition/ use of supplements: [] Nutritional Intake: [] IV Site: [] Vincent Catheter: [] Assessment & Plan Assessment/Plan (1) Rash: (2) Fever: PLAN: With fatigue, tick exposure, fever, headache, centripetal rash, highest concern is for john mountain spotted fever. CSF normal with only 5 wbc. Much improved, ok for home for 7 days of doxy po. Will follow as needed, d/w primary team (3) Fatigue:
--- NOTE | 2020-09-06 14:15 | PHA.DC.MR ---
Pharmacy Service has performed discharge medication reconciliation for this patient. The patient's discharge medication list was reviewed for discrepancies and discrepancies were resolved. Discharge medication education sheets prepared but patient was already gone when I went to the room. Home Medications doxycycline monohydrate 100 mg PO BID 7 Days #14 cap 09/06/20
[2020-09-13 11:17] LABS: Lyme IgG P18 Ab Absent (.); Lyme IgG P23 Ab Present (.); Lyme IgG P28 Ab Absent (.); Lyme IgG P30 Ab Absent (.); Lyme IgG P39 Ab Absent (.); Lyme IgG P41 Ab Absent (.); Lyme IgG P45 Ab Absent (.); Lyme IgG P58 Ab Absent (.); Lyme IgG P66 Ab Absent (.); Lyme IgG P93 Ab Absent (.); Lyme IgM P23 Ab Present (.); Lyme IgM P39 Ab Present (.); Lyme IgM P41 Ab Present (.)
[2020-09-13 12:57] LABS: Lyme IgG WB Interpretation Negative (.); Lyme IgM WB Interpretation Positive (.)
== END 2020-09-06 14:11 | disposition home or self-care (01) | DRG 869 ==
LOC: ED 09-05 00:12 → PCU 09-05 00:54
PROVIDERS: Admitting Provider Student in an Organized Health Care Education/Training Program; Emergency Provider Emergency Medicine; Visit Provider Family Medicine
DX: A77.0 Spotted fever due to Rickettsia rickettsii (principal); A69.20 Lyme disease, unspecified; F17.210 Nicotine dependence, cigarettes, uncomplicated
CPT/HCPCS: 36415; 70450; 71045; 80048; 80053; 81001; 82945; 83605; 84157; 85025; 86617; 86618; 87040; 87070; 87077; 87086; 87205; 87426; 89050; 89051; 93005; 99285; 99406; J7030; A4216; J0696